=== PATIENT | male | born 1965 | race Two or more races ===

== ENCOUNTER 2017-03-17 10:33 | Emergency (ER) | payer MEDICAID ==
[~2017-03-17] VITALS: Ht 177.8 cm; Wt 170.1 kg
[2017-03-17 10:49] VITALS: BP 157/97
[2017-03-17] MEDS ORDERED: ATENOLOL50 MG ORAL (10:54)
[2017-03-17] MEDS ORDERED: ACCUPRIL20 MG ORAL (10:54)
[2017-03-17] MEDS ORDERED: IBUPROFEN600 MG ORAL ×2 (10:56→12:33)
--- NOTE | 2017-03-17 11:55 | Diagnostic Imaging Report ---
Indications: PAIN Technique: Two views of the right humerus Comparison: None Findings: Body habitus limits assessment. No definite acute fractures. No dislocations. No evidence of radiopaque foreign body Impression: No acute process
[2017-03-17 12:51] VITALS: BP 148/89
[2017-03-17 12:52] VITALS: BP 148/89
--- NOTE | 2017-03-17 15:35 | Emergency Room Report ---
History of Present Illness General Chief Complaint: Upper Extremity Injury Source: Patient Present Illness HPI Patient is a 51-year-old male who presented after increased right upper extremity pain. Patient had a recent fall down stairs. He denies any difficulty breathing or loss of consciousness. The patient had complained of pain to his right upper extremity worse with movement. He denies any abdominal pain or shortness of breath. The pain was worse with abduction of the right shoulder. Allergies: Coded Allergies: No Known Allergies (Unverified , 03/17/17) Patient History Past Medical History: see triage record Reviewed Nursing Documentation: PMH: Agreed, PSxH: Agreed Nursing Documentation-PM Past Medical History: No Stated History Hx Hypertension: Yes Review of Systems All Other Systems: negative except mentioned in HPI Physical Exam Vital Signs Date Time Temp Pulse Resp B/P (MAP) Pulse Ox O2 Delivery O2 Flow Rate FiO2 03/17/17 10:49 98.1 82 21 157/97 94 Room Air General Appearance: well appearing, no apparent distress, alert, GCS 15 Head: normocephalic, atraumatic ENT: hearing grossly normal, normal voice Neck: full range of motion, supple Respiratory: no respiratory distress, speaking full sentences Gastrointestinal: normal inspection, normal bowel sounds, non tender Musculoskeletal: no calf tenderness Neurologic: normal inspection, alert, oriented x3, normal gait Psychiatric: mood/affect normal Skin: hematoma - to right upper extremity, right chest wall Medical Decision Making Diagnostic Impression: Primary Impression: Injury of upper extremity ER Course X-ray imaging of the humerus 2 views read by radiology showed no evidence of acute fracture or malalignment. The patient was noted to have bruising to his right upper chest pain chest wall consistent with multiple contusion. The patient does not appear to require any further imaging at this time. The patient was placed in a sling. He is advised followup with orthopedics if pain persisted Last Vital Signs Date Time Temp Pulse Resp B/P (MAP) Pulse Ox O2 Delivery O2 Flow Rate FiO2 03/17/17 12:52 98.1 80 21 148/89 96 Room Air Status: improved Disposition: HOME, SELF-CARE Condition: Stable Scripts Ibuprofen* (MOTRIN*) 600 Mg Tablet 600 MG ORAL Q6H Y for For Pain, #30 TAB Prov: Librado Meyer 03/17/17 Referrals: [facility]ERR[facility] (PCP) Patient Instructions: Muscle Tear Librado Meyer Mar 17, 2017 15:35
== END 2017-03-17 12:55 | disposition home or self-care (01) ==
LOC: EMR 11:42
DX: S49.81XA Other specified injuries of right shoulder and upper arm, initial encounter (principal); W10.9XXA Fall (on) (from) unspecified stairs and steps, initial encounter; Y92.009 Unspecified place in unspecified non-institutional (private) residence as the place of occurrence of the external cause; I10 Essential (primary) hypertension
CPT/HCPCS: 99283; 99284